=== PATIENT | female | born 1980 | race Caucasian/White ===

== ENCOUNTER 2022-03-11 17:09 | Emergency (ER) | payer OTHER ==
[~2022-03-11] VITALS: Ht 152.4 cm; Wt 100.0 kg
[~2022-03-11 17:09] MED LIST: NORCO 325 MG-7.1 TAB PO; PERCOCET 325 MG1 TAB PO; PREMARIN 0.60.625 M1 PO; ULTRAM ER300 MG PO; [UNRECOGNIZED DRUG - OTHER] PO
[2022-03-11 18:15] LABS: BASO # 0.1 K/mm3 (0.0-0.2); BASO % 0.6 % (0.0-2.0); EOS # 0.2 K/mm3 (0.0-0.7); EOS % 2.8 % (0.0-4.0); GRAN # 4.9 K/mm3 (1.4-6.5); GRAN % 57.1 % (42.2-75.2); HEMATOCRIT 43.5 % (37.0-47.0); LYMPH # 2.8 K/mm3 (1.2-3.4); LYMPH % 32.8 % (20.0-51.0); MEAN CELL VOLUME 90 fl (80.0-100.0); MEAN CORPUSCULAR HEMOGLOBIN 31 pg (27-31); MEAN CORPUSCULAR HGB CONC 35 g/dl (33.0-37.0); MEAN PLATELET VOLUME 10.4 fl (7.4-10.4); MONO # 0.6 K/mm3 (0.1-0.6); MONO % 6.4 % (1.7-9.3); PLATELET COUNT 251 K/mm3 (130-400); RED BLOOD COUNT 4.86 M/mm3 (4.10-5.30)
[2022-03-11 18:17] LABS: COLLECTION METHOD CLEAN CATCH
[2022-03-11 18:26] LABS: MUCOUS Present (NOT PRESENT); PH 5 (5-8); SQUAMOUS EPITHELIAL 0-2 /hpf (0-10); URINE APPEARANCE Clear (CLEAR/HAZY); URINE BACTERIA None Seen /hpf (NONE SEEN); URINE BILIRUBIN Negative (NEGATIVE); URINE BLOOD Negative (NEGATIVE); URINE COLOR Yellow (YELLOW); URINE GLUCOSE 3+ (NEGATIVE); URINE KETONE Trace (NEGATIVE); URINE LEUKOCYTE ESTERASE Negative (NEGATIVE); URINE NITRATE Negative (NEGATIVE); URINE PROTEIN(semi-quant) Negative (NEGATIVE); URINE RBC 0-2 /hpf (0-2); URINE UROBILINOGEN Negative (NEGATIVE)
[2022-03-11 18:31] LABS: ACETONE,SERUM NEGATIVE
[2022-03-11 18:40] LABS: ALANINE AMINOTRANSFERASE 57 U/L (0-55); ALBUMIN 4.4 gm/dL (3.5-5.0); ALKALINE PHOSPHATASE 108 U/L (40-150); ANION GAP 14 mmol/L (7-16); AST,SGOT 34 U/L (5-34); BILIRUBIN,TOTAL 0.5 mg/dL (0.2-1.2); BLOOD UREA NITROGEN 10 mg/dL (7-19); CALCIUM 9.4 mg/dL (8.4-10.2); CARBON DIOXIDE 20 mmol/L (22-29); CHLORIDE 102 mmol/L (98-107); CREATININE, serum 0.86 mg/dL (0.57-1.11); GLUCOSE 358 mg/dL (70-99); LIPASE 34 U/L (8-78); POTASSIUM 3.9 mmol/L (3.5-4.5); SODIUM 136 mmol/L (136-145); TOTAL PROTEIN 7.5 gm/dL (6.2-8.1)
[2022-03-11 21:10] VITALS: BP 157/93; PULSE 97
== END 2022-03-11 21:10 | disposition home or self-care (01) ==
LOC: COL.ER 17:09
PROVIDERS: Nurse Practitioner Primary Care
DX: E11.65 Type 2 diabetes mellitus with hyperglycemia (principal); R00.0 Tachycardia, unspecified; R06.82 Tachypnea, not elsewhere classified; Z79.84 Long term (current) use of oral hypoglycemic drugs
CPT/HCPCS: J7030